=== PATIENT | female | born 1980 | race American Indian/Alaskan Native ===

== ENCOUNTER 2017-03-03 01:19 | Emergency (ER) | payer SELFPAY ==
[2017-03-03] MEDS ORDERED: MOTRIN PO ONE (01:49)
[2017-03-03 02:26] LABS: Basophils % (Auto) 0.9 % (0.0-1.8); Eosinophils % (Auto) 0.7 % (0.0-4.3); Hematocrit 41.5 % (30.3-42.9); Hemoglobin 14.2 gm/dl (10.1-14.3); Mean Corpuscular HGB Conc 34 % (30-34); Mean Corpuscular Hemoglobin 31 pg (28-32); Mean Corpuscular Volume 91 fl (79-97); Platelet Count 269 K/mm3 (140-440); Red Blood Count 4.54 M/mm3 (3.65-5.03); Red Cell Distribution Width 14.8 % (13.2-15.2); White Blood Count 8.4 K/mm3 (4.5-11.0)
[2017-03-03 02:28] LABS: BUN/Creatinine Ratio 8.33; Blood Urea Nitrogen 5 mg/dL (7-17); Calcium 9.3 mg/dL (8.4-10.2); Carbon Dioxide 20 mmol/L (22-30); Chloride 100.4 mmol/L (98-107); Glucose 121 mg/dL (65-100); Sodium 140 mmol/L (137-145)
[2017-03-03 02:43] LABS: Anion Gap 24 mmol/L; Potassium 4.6 mmol/L (3.6-5.0)
== END 2017-03-03 02:20 | disposition left against medical advice (07) ==
LOC: ED 01:19
DX: R07.9 Chest pain, unspecified (principal); Z53.21 Procedure and treatment not carried out due to patient leaving prior to being seen by health care provider
CPT/HCPCS: 36415; 80048; 84484; 85025; 93005; 93010